=== PATIENT | female | born 1955 | race Caucasian/White ===

== ENCOUNTER 2025-10-14 11:35 | Outpatient (CLI) | payer MEDICARE, MEDICAID ==
--- NOTE | 2025-10-14 13:01 | RADIOLOGY REPORT ---
CT chest low-dose noncontrast History: HISTORY OF NICOTINE DEDPENDENCY TECHNIQUE: Images were obtained on the Siemens Sensation-16 CT Scanner then reformatted in sagittal and coronal plane. FINDINGS: There is minimal parenchymal scarring in the right lung apex. The lungs are hyperexpanded. No suspicious mass lesions. No pleural effusions. 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 The heart size is slightly enlarged without pericardial effusion. Coronary artery calcification is present. Small mediastinal lymph nodes. Retrocardiac hiatal hernia containing portion of the stomach Limited views of the upper abdomen unremarkable IMPRESSION: 1. No evidence of malignancy or acute cardiopulmonary pathology. 2. Incidental note made of coronary artery calcification and of a retrocardiac hiatal hernia Computed Tomographic Radiation Dosimetry Report: Total CTDI vol = 1.8 mGy Total DLP = 60.6 mGy-cm All CT scans at this medical facility are performed using dose modulation techniques as appropriate to a performed exam including the following: Automated exposure control was utilized; adjustment of the MA and/or KvP according to patient size; and use of iterative reconstruction technique.
== END 2025-10-14 23:59 | disposition home or self-care (01) ==
LOC: RAD 11:35
PROVIDERS: ATTEND Physician Assistant
DX: Z12.2 Encounter for screening for malignant neoplasm of respiratory organs (principal); K44.9 Diaphragmatic hernia without obstruction or gangrene; I25.10 Atherosclerotic heart disease of native coronary artery without angina pectoris; I51.7 Cardiomegaly; Z87.891 Personal history of nicotine dependence
CPT/HCPCS: 71271